=== PATIENT | male | born 1945 | race Caucasian/White ===

== ENCOUNTER 2019-01-31 07:53 | Outpatient (CLI) | payer MEDICARE, BC ==
--- NOTE | 2019-01-31 08:20 | ULT ---
Bilateral renal ultrasound with renal Doppler evaluation CLINICAL INDICATION: Chronic kidney disease and hypertension. COMPARISON: None FINDINGS: Right kidney: There is a lobulated appearance of the right kidney which may related to lobulati on. There is no renal cortical thinning, hydronephrosis, renal calculus, or renal mass identified.The right kidney measures 9.7 cm x 4.9 cm. Left kidney: Mildly lobulated appearance, but no renal mass, renal calculus, or hydronephrosis is see n. There is a circumscribed anechoic cystic structure midportion left kidney which demonstrates sonographic characteristics most compatible with a cyst.The left kidney measures 10 cm x 5.1 cm. Urinary bladder: Within normal limits for degree of distention. Renal Doppler evaluation with spectral analysis and color flow evaluation: The peak systolic velocity in the right renal artery is 86.9 cm/s and the peak systolic velocity in t he left renal artery is 121 cm/s. The peak systolic velocity in the abdominal aorta is 68.8 cm/s. The right renal artery to aorta ratio is 1.26 with left renal artery to aorta ratio of 1.76. Normal r enal artery to aorta ratio is less than 3. Resistive indices in the right kidney range from 0.53-0.65 with resistive indices on the left ranging from 0.7-0.75. Normal resistive indices are less than 0.7. IMPRESSION: 1. No evidence of hydronephrosis. 2. Left renal cyst. 3. Normal renal artery to aorta ratios bilaterally with slight increase in resistive indices involvin g the left kidney.
== END 2019-01-31 07:54 | disposition home or self-care (01) ==
LOC: BICULT 07:53
PROVIDERS: ATTEND Internal Medicine Nephrology
DX: I12.9 Hypertensive chronic kidney disease with stage 1 through stage 4 chronic kidney disease, or unspecified chronic kidney disease (principal); N18.3 Chronic kidney disease, stage 3 (moderate); N28.1 Cyst of kidney, acquired; R93.422 Abnormal radiologic findings on diagnostic imaging of left kidney
CPT/HCPCS: 76770; 93975